=== PATIENT | female | born 1990 | race Caucasian/White ===

== ENCOUNTER 2021-01-18 06:32 | Emergency (ER) | payer OTHER ==
[2021-01-18 06:39] VITALS: BP 139/74; PULSE 56; TEMP 97.8; BMI 39.1
[2021-01-18 08:30] LABS: BASO % 2.1 % (0-2.0); EOS % 1.2 % (0-4.5); HEMATOCRIT 33.9 % (32.4-45.2); HEMOGLOBIN 11.4 GM/dl (10.7-15.3); LYMPH % 41.1 % (8-40); MCH 29.6 pg (25.7-33.7); MCHC 33.6 g/dl (32.0-36.0); MEAN CELL VOLUME 87.9 fl (80-96); MEAN PLT VOLUME 9.8 fl (7.5-11.1); MONO % 13.5 % (3.8-10.2); NEUT % 42.1 % (42.8-82.8); PLATELET COUNT 247 K/MM3 (134-434); RBC 3.86 M/mm3 (3.60-5.2); RDW 13.5 % (11.6-15.6); WHITE BLOOD COUNT 9.8 K/mm3 (4.0-10.8)
[2021-01-18 08:34] LABS: CALCIUM 8.8 mg/dl (8.5-10); CREATININE 0.8 mg/dl (0.55-1.3)
== END 2021-01-18 09:05 | disposition home or self-care (01) ==
LOC: FER 06:32
DX: R60.0 Localized edema (principal)
CPT/HCPCS: 36415; 80048; 80164; 84443; 85025; 86376; 86800; 99284-25

== ENCOUNTER 2021-02-03 23:31 | Emergency (ER) | payer OTHER ==
[2021-02-03 23:39] VITALS: BP 138/83; PULSE 95; TEMP 99.2; BMI 37.6
[2021-02-04] MEDS ORDERED: KETOROLAC TROMETHAMINE 60 MG/2 ML VIAL IM ONE (01:03)
[2021-02-04] MEDS ORDERED: KETOROLAC TROMETHAMINE 30 MG/1 ML VIAL ONE (01:04)
== END 2021-02-04 01:17 | disposition home or self-care (01) ==
LOC: FER 23:31
PROC: 3E0233Z Introduction of Anti-inflammatory into Muscle, Percutaneous Approach (ICD-10-PCS; principal; 2021-02-03)
DX: M62.838 Other muscle spasm (principal)
CPT/HCPCS: 99284-25